=== PATIENT | female | born 1950 | race Caucasian/White ===

== ENCOUNTER 2017-03-20 09:42 | Emergency (ER) | payer MEDICARE ==
[2017-03-20 10:00] VITALS: BP 147/84
--- NOTE | 2017-03-20 10:11 | EDM.PDOC ---
ED HPI GENERAL MEDICAL PROBLEM - General Chief Complaint: Trauma Stated Complaint: [id number] FELL YESTERDAY ON [address] Time Seen by Provider: 03/20/17 09:58 Source of Information: Reports: Patient, RN, RN Notes Reviewed History Limitations: Reports: No Limitations - History of Present Illness INITIAL COMMENTS - FREE TEXT/NARRATIVE: Pt presents to the ER with c/o left shoulder pain and left hip/back pain. She states she slipped on the ice yesterday, and states the pain has not lessened at all. She states pain is a 10/10. She denies hitting her head or losing consciousness, no other complaints. 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 Left Hip Pain Score (Numeric/FACES): 10 - Related Data Allergies Allergy/AdvReac Type Severity Reaction Status Date / Time hydrochlorothiazide Allergy Difficulty Verified 02/12/15 13:33 Breathing lisinopril Allergy Cough Verified 03/20/17 10:04 Penicillins Allergy Hives Verified 02/12/15 13:33 Home Meds: Home Meds Sertraline [Zoloft] 50 mg PO DAILY 02/12/15 [History] Aspirin [Adult Low Dose Aspirin EC] 81 mg PO DAILY 03/04/15 [History] Carvedilol [Coreg] 3.125 mg PO BID 03/04/15 [History] Losartan [Cozaar] 50 mg PO DAILY 03/04/15 [History] Nitroglycerin [Nitrostat] 0.4 mg SL ASDIRECTED 03/04/15 [History] Omeprazole 20 mg PO DAILY 03/04/15 [History] atorvaSTATin [Lipitor] 40 mg PO DAILY 04/12/15 [History] Clopidogrel [Plavix] 75 mg PO DAILY 03/20/17 [History] Social & Family History - Tobacco Use Smoking Status *Q: Current Every Day Smoker Years of Tobacco use: 50 Packs/Tins Daily: 0.5 - Recreational Drug Use Recreational Drug Use: No Review of Systems - Review of Systems Review Of Systems: ROS reveals no pertinent complaints other than HPI. ED EXAM, GENERAL - Physical Exam Exam: See Below Exam Limited By: No Limitations General Appearance: Alert, WD/WN, Mild Distress Eye Exam: Bilateral Eye: EOMI, Normal Inspection Ears: Normal External Exam, Hearing Grossly Normal Nose: Normal Inspection Throat/Mouth: Normal Inspection, Normal Voice, No Airway Compromise Head: Atraumatic, Normocephalic Neck: Normal Inspection, Supple, Non-Tender, Full Range of Motion Respiratory/Chest: No Respiratory Distress, Lungs Clear, Normal Breath Sounds, No Accessory Muscle Use, Chest Non-Tender Cardiovascular: Normal Peripheral Pulses, Regular Rate, Rhythm, No Edema, No Gallop, No JVD, No Murmur, No Rub, Bradycardia Peripheral Pulses: 2+: Radial (L), Radial (R), Dorsalis Pedis (L), Dorsalis Pedis (R) GI/Abdominal: Normal Bowel Sounds, Soft, No Organomegaly, No Distention, No Abnormal Bruit, No Mass, Pelvis Stable, Tender (LLQ) (Female) Exam: Deferred Rectal (Female) Exam: Deferred Back Exam: Normal Inspection, Decreased Range of Motion Extremities: Normal Inspection, Other (Ecchymosis to the left lateral hip/thigh area). No: Normal Range of Motion (Decreased ROM left arm/shoulder, left hip/ leg) Neurological: Alert, Oriented, Normal Cognition, Normal Gait, Normal Reflexes, No Motor/Sensory Deficits Psychiatric: Normal Affect, Normal Mood Skin Exam: Warm, Dry, Intact, Normal Color, No Rash, Ecchymosis (Left lateral hip/thigh) Lymphatic: No Adenopathy Course - Vital Signs Last Recorded V/S: Last Vital Signs Temp 98.4 F 03/20/17 09:58 Pulse 54 L 03/20/17 09:58 Resp 16 03/20/17 09:58 BP 147/84 H 03/20/17 09:58 Pulse Ox 98 03/20/17 09:58 - Orders/Labs/Meds Orders: Active Orders 24 hr Category Date Time Status Burrell Catheter Insertion [Insert Urinary Catheter] [OM. Care 03/20/17 11:45 Ordered PC] Q24H Peripheral IV Care [RC] . DIRECTED Care 03/20/17 10:48 Active Urinary Catheter Assessment [RC] ASDIRECTED Care 03/20/17 11:37 Active INR,PT,PROTHROMBIN TIME [COAG] Stat Lab 11/21/17 10:56 Received Sodium Chloride 0.9% [Saline Flush] Med 03/20/17 10:48 Active 10 ml FLUSH ASDIRECTED PRN Peripheral IV Insertion Adult [OM.PC] Stat Oth 03/20/17 10:47 Ordered Medication Orders Sodium Chloride (Saline Flush) 10 ml FLUSH ASDIRECTED PRN PRN Reason: Keep Vein Open Last Admin: 03/20/17 11:18 Dose: 10 ml Labs: Laboratory Tests 03/20/17 03/20/17 Range/Units 10:56 10:56 WBC 9.9 (5.0-10.0) 10^3/uL RBC 3.94 L (4.2-5.4) 10^6/uL Hgb 11.9 L (12.0-16.0) g/dL Hct 34.9 L (37.0-47.0) % MCV 88.6 (80-100) fL MCH 30.2 (27.0-34.0) pg MCHC 34.1 (33.0-35.0) g/dL Plt Count 168 D (150-450) 10^3/uL Neut % (Auto) 77.4 H (42.2-75.2) % Lymph % (Auto) 13.3 L (20.5-50.1) % [place] % (Auto) 6.8 (2-8) % Eos % (Auto) 2.0 (1.0-3.0) % Baso % (Auto) 0.5 (0.0-1.0) % Sodium 131 L (135-145) mmol/L Potassium 4.3 (3.6-5.0) mmol/L Chloride 95 L (101-111) mmol/L Carbon Dioxide 25.0 (21.0-31.0) mmol/L Anion Gap 15.3 BUN 15 (7-18) mg/dL Creatinine 1.1 (0.6-1.3) mg/dL Est Cr Clr Drug Dosing 36.94 mL/min Estimated GFR (MDRD) 49 BUN/Creatinine Ratio 13.63 Glucose 111 H (74-105) mg/dL Calcium 9.2 (8.4-10.2) mg/dl Total Bilirubin 1.3 H (0.2-1.0) mg/dL AST 23 (10-42) IU/L ALT 16 (10-60) IU/L Alkaline Phosphatase 69 (42-121) IU/L Total Protein 7.2 (6.7-8.2) g/dl Albumin 3.9 (3.2-5.5) g/dl Globulin 3.3 Albumin/Globulin Ratio 1.18 Meds: Medications Generic Name Dose Route Start Last Admin Trade Name Freq PRN Reason Stop Dose Admin Sodium Chloride 10 ml 03/20/17 10:48 03/20/17 11:18 Saline Flush FLUSH 10 ml ASDIRECTED PRN Administration Keep Vein Open Discontinued Medications Generic Name Dose Route Start Last Admin Trade Name Freq PRN Reason Stop Dose Admin Hydromorphone HCl 0.5 mg 03/20/17 10:48 03/20/17 11:18 Dilaudid IVPUSH 03/20/17 10:49 0.5 mg ONETIME ONE Administration - Radiology Interpretation Free Text/Narrative:: Left shoulder: Acute nondisplaced fracture scapula that extends into the glenoid (L) Left hip/pelvis: Compacted left femoral neck fx See rad report Departure - Departure Time of Disposition: 11:55 Disposition: DC/Tfer to [facility] Condition: Fair Clinical Impression: Fracture of neck of femur, hip Fracture, scapula closed Qualifiers: Encounter type: initial encounter Scapula location: unspecified part of scapula Laterality: left Qualified Code(s): S42.102A - Fracture of unspecified part of scapula, left shoulder, initial encounter for closed fracture - Discharge Information Forms: ED Department Discharge, Interfacility Transfer EMTALA - My Orders Last 24 Hours: My Active Orders 03/20/17 10:47 Peripheral IV Insertion Adult [OM.PC] Stat 03/20/17 10:48 Peripheral IV Care [RC] . DIRECTED Sodium Chloride 0.9% [Saline Flush] 10 ml FLUSH ASDIRECTED PRN 03/20/17 10:56 INR,PT,PROTHROMBIN TIME [COAG] Stat - Assessment/Plan Last 24 Hours: My Active Orders 03/20/17 10:47 Peripheral IV Insertion Adult [OM.PC] Stat 03/20/17 10:48 Peripheral IV Care [RC] . DIRECTED Sodium Chloride 0.9% [Saline Flush] 10 ml FLUSH ASDIRECTED PRN 03/20/17 10:56 INR,PT,PROTHROMBIN TIME [COAG] Stat
--- NOTE | 2017-03-20 10:38 | CR ---
Clinical history: 66-year-old female pain left shoulder (fall). Interpretation: Abnormal. Acute nondisplaced fracture scapula that extends into the glenoid. No sign of other left shoulder fracture, acromioclavicular separation or acute glenohumeral dislocati on. Left lung apex is clear.
[2017-03-20] MEDS ORDERED: HYDROmorphone 1 MG/ML Syringe IVPUSH ONE ×2 (10:48→12:08)
[2017-03-20] MEDS ORDERED: Sodium Chloride 0.9% 10 ML Syringe FLUSH PRN (10:48)
--- NOTE | 2017-03-20 11:26 | CR ---
Clinical history: 3 views 66-year-old female injured in fall ("fractured scapula" and left hip pain). Interpretation: AP pelvis/hips and crosstable lateral views of the left hip abnormal. Acute, anatomically aligned but impacted subcapital fracture of the left femoral neck. Arthritic changes lower lumbar spine. Symmetric spacing normal-appearing SI and hip joints. No sign of pathologic skeletal lesion, pelvic or contralateral right hip fracture/dislocation.
== END 2017-03-20 12:25 ==
LOC: DL.ED 09:42
DX: S72.012A Unspecified intracapsular fracture of left femur, initial encounter for closed fracture (principal); S42.145A Nondisplaced fracture of glenoid cavity of scapula, left shoulder, initial encounter for closed fracture; F17.210 Nicotine dependence, cigarettes, uncomplicated; Z79.82 Long term (current) use of aspirin; Z79.02 Long term (current) use of antithrombotics/antiplatelets; Z79.899 Other long term (current) drug therapy; Z88.0 Allergy status to penicillin; Z88.8 Allergy status to other drugs, medicaments and biological substances; W18.49XA Other slipping, tripping and stumbling without falling, initial encounter
CPT/HCPCS: 36415; 51702; 73030; 73502; 80053; 85025; 85610; 96374; 96376; 99285; J1170; J7050; 99284

== ENCOUNTER 2019-11-14 08:00 | Day surgery (SDC) | payer MEDICARE, OTHER ==
[~2019-11-14 08:00] MED LIST: Dextrose 5%-0.45% NaCl 1,000 ML IV SCH
[2019-11-14] MEDS ORDERED: Midazolam 1 MG/ML 2 ML SDV IV ONE ×6 (08:01→09:03)
[2019-11-14] MEDS ORDERED: fentaNYL 100 MCG/2 ML SDV IV ONE ×3 (08:01→08:57)
[2019-11-14] MEDS ORDERED: fentaNYL 100 MCG/2 ML SDV ONE (08:13)
[2019-11-14] MEDS ORDERED: Midazolam 1 MG/ML 2 ML SDV ONE (08:13)
--- NOTE | 2019-11-14 10:31 | OR ---
DATE: 11/14/2019 PREOPERATIVE DIAGNOSIS: Prior colon polyps. POSTOPERATIVE DIAGNOSIS: Prior colon polyps. PROCEDURE: Total colonoscopy with excision of polyp at 20 cm. ANESTHESIA: Conscious sedation. SPECIMEN: Polyp. OPERATIVE FINDINGS: A small sessile polyp at 20 cm and sigmoid diverticulosis. INDICATION FOR PROCEDURE: This 68-year-old female has a history of prior polyp removal on prior colonoscopy. RECOMMENDATION: Followup colonoscopy in 5 years for polyp surveillance. DESCRIPTION OF PROCEDURE: After adequate preparation, a colonoscope was inserted into the rectum. This was easily passed all the way to the cecum. Confirmation of the cecum was made by visualization of the ileocecal valve and palpation in the right lower quadrant. The bowel prep was excellent. On withdrawal of the scope, the only abnormality noted was sigmoid diverticulosis and a small polyp at about 20 cm from the anal verge. A large biopsy forceps was used to completely extract the polyp. No other abnormalities were noted except for external hemorrhoids. She does not have any significant internal hemorrhoids. Air was suctioned from the colon, and the scope removed. [facility] /[id number]
[2019-11-14 12:28] VITALS: BP 149/72; PULSE 56
== END 2019-11-14 11:28 | disposition home or self-care (01) ==
LOC: DL.ENDO 08:00
PROVIDERS: ATTEND Surgery
DX: Z12.11 Encounter for screening for malignant neoplasm of colon (principal); D12.5 Benign neoplasm of sigmoid colon; K21.9 Gastro-esophageal reflux disease without esophagitis; K57.30 Diverticulosis of large intestine without perforation or abscess without bleeding; Z86.010 Personal history of colon polyps; Z11.59 Encounter for screening for other viral diseases; Z88.0 Allergy status to penicillin; Z88.8 Allergy status to other drugs, medicaments and biological substances
CPT/HCPCS: 45380; 88305; J2250; J3010; J7042; U0002

== ENCOUNTER 2020-07-14 07:51 | Day surgery (SDC) | payer MEDICARE ==
[2020-07-14] MEDS ORDERED: Dexamethasone 4 MG/ML SDV IV ONE (07:52)
[2020-07-14] MEDS ORDERED: Midazolam 1 MG/ML 2 ML SDV IV ONE (07:52)
[2020-07-14] MEDS ORDERED: Sodium Chloride 0.9% 10 ML Syringe IV ONE (07:52)
[2020-07-14] MEDS ORDERED: Acetaminophen 325 MG Tab PO PRN (08:00)
[2020-07-14] MEDS ORDERED: Cataract Ophth Solution EYELF ONE (08:00)
[2020-07-14] MEDS ORDERED: Tropicamide 1% Ophth Soln 15 ML Bottle EYELF ONE (08:00)
[2020-07-14] MEDS ORDERED: Moxifloxacin 0.5% Ophth Soln 3 ML Bottle EYELF ONE (08:00)
[2020-07-14] MEDS ORDERED: Ondansetron 4 MG/2 ML SDV IVPUSH PRN (08:00)
[2020-07-14] MEDS ORDERED: Sodium Chloride 0.9% 10 ML Syringe FLUSH PRN (08:00)
[2020-07-14] MEDS ORDERED: Timolol Maleate 0.5% Ophth Soln 5 ML Bottle EYELF ONE (08:00)
[2020-07-14] MEDS ORDERED: Phenylephrine 10% Ophth Soln 5 ML Bot EYELF ONE ×2 (08:00→10:25)
[2020-07-14] MEDS ORDERED: Povidone-Iodine 5% Sterile Ophth Soln 30 ML Bottle EYELF ONE ×2 (08:00→10:25)
[2020-07-14] MEDS ORDERED: Proparacaine 0.5% Ophth Soln 15 ML Bottle EYELF ONE (08:00)
[2020-07-14] MEDS ORDERED: Phenylephrine 10% Ophth Soln 5 ML Bot EYELF PRN (08:00)
[2020-07-14 08:15] VITALS: BP 149/68; PULSE 47
[2020-07-14] MEDS ORDERED: Tetracaine HCl/PF 0.5% 4 ML Bottle EYELF ONE (10:25)
[2020-07-14] MEDS ORDERED: Diclofenac Sodium 0.1% Ophth Soln 5 ML Bottle EYELF ONE (10:25)
[2020-07-14] MEDS ORDERED: Lidocaine 1% 30 ML SDV ONE (10:25)
[2020-07-14] MEDS ORDERED: Apraclonidine 0.5% Ophth Soln 5 ML Bot EYELF ONE (10:25)
[2020-07-14] MEDS ORDERED: Chondroitin Sulfate/Hyaluronate Sodium Ophth Inj 0.75 ML Syringe EYELF ONE (10:26)
[2020-07-14] MEDS ORDERED: Balanced Salt Solution Ophth Irrig 500 ML Bottle IOCULAR ONE (10:26)
[2020-07-14] MEDS ORDERED: Vancomycin 500 MG SDV EYELF ONE (10:26)
--- NOTE | 2020-07-14 14:36 | OR ---
DATE: 07/14/2020 PREOPERATIVE DIAGNOSIS: Visually significant mixed cataract, left eye. POSTOPERATIVE DIAGNOSIS: Visually significant mixed cataract, left eye. PROCEDURE: Extracapsular cataract extraction with intraocular lens implant, left eye. ANESTHESIA: Topical/local MAC. COMPLICATIONS: None. INDICATION: Ms. Sanon was seen in the clinic. She has noticed a progressive change in vision, difficulty seeing television, difficulty seeing the menus, difficulty seeing and filling out forms. Her examination reveals visually significant mixed cataract. I explained options, offered cataract surgery, and I explained risks including, but not limited to infection, retinal detachment, loss of vision, need for additional surgery, and risks associated with anesthesia. We discussed implant options. She has requested a monofocal implant. She is comfortable wearing glasses following surgery if necessary. She voiced an understanding with respect to risks and alternatives and wished to proceed. OPERATIVE DESCRIPTION: After informed consent was obtained and the risks, benefits, and alternatives were explained, the patient was brought to the operative suite and topical anesthesia was administered. The patient was then prepped and draped in the sterile fashion and attention was placed on the left eye. A sterile lid speculum was placed into the left eye to allow operative exposure. A full-thickness paracentesis was made in the temporal portion of the operative eye. Preservative-free lidocaine 0.1 mL was injected into the anterior chamber followed by viscoelastic. A full-thickness corneal incision was then made into the anterior chamber. A bent needle cystotome was used to create a small wilian in the anterior capsule. The capsulorrhexis forceps was then used to create a 360-degree curvilinear capsulorrhexis. The nucleus was then removed using a phacoemulsification handpiece and the remaining cortical material was then removed with irrigation and aspiration handpiece. Following removal of the cortical material, the capsular bag was then inspected and noted to be free of any holes or tears. Viscoelastic was then injected into the capsular bag and the intraocular lens was inserted into the capsular bag. The viscoelastic material was then removed from both the anterior and posterior chambers and from behind the IOL. The lens and capsular bag were then reinspected. The IOL was well centered and the capsular bag intact. The wound and paracentesis sites were inspected and hydrated with balanced saline solution. Both were found to be self- sealing. The intraocular pressure was assessed digitally and found to be within normal range. A good red reflex was noted at the completion of the procedure. No complications occurred during the operation. At the completion of the procedure, Maxitrol, Voltaren, and Iopidine drops were placed into the operative eye. A sterile eye shield was placed over the operative eye and the patient was transported to the postoperative recovery area having tolerated the procedure well. Postoperative instructions were given along with a postoperative appointment. The patient was advised to call with any questions or concerns. [facility] /[id number]
== END 2020-07-14 10:57 | disposition home or self-care (01) ==
LOC: DL.SDS 07:51
PROVIDERS: ATTEND Ophthalmology
DX: H26.8 Other specified cataract (principal); E78.5 Hyperlipidemia, unspecified; I10 Essential (primary) hypertension; I25.10 Atherosclerotic heart disease of native coronary artery without angina pectoris; I25.2 Old myocardial infarction; E55.9 Vitamin D deficiency, unspecified; K21.9 Gastro-esophageal reflux disease without esophagitis; Z88.0 Allergy status to penicillin; Z88.8 Allergy status to other drugs, medicaments and biological substances; Z79.82 Long term (current) use of aspirin; Z79.899 Other long term (current) drug therapy; Z98.890 Other specified postprocedural states; Z87.891 Personal history of nicotine dependence
CPT/HCPCS: 66984; J1100; J2250; J3370; V2632; 00142

== ENCOUNTER 2020-07-21 07:57 | Day surgery (SDC) | payer MEDICARE ==
[2020-07-21] MEDS ORDERED: Midazolam 1 MG/ML 2 ML SDV IV ONE (07:58)
[2020-07-21] MEDS ORDERED: Dexamethasone 4 MG/ML SDV IV ONE (07:58)
[2020-07-21] MEDS ORDERED: Sodium Chloride 0.9% 10 ML Syringe IV ONE (07:58)
[2020-07-21] MEDS ORDERED: Proparacaine 0.5% Ophth Soln 15 ML Bottle EYERT ONE (08:00)
[2020-07-21] MEDS ORDERED: Phenylephrine 10% Ophth Soln 5 ML Bot EYERT ONE ×2 (08:00→09:12)
[2020-07-21] MEDS ORDERED: Moxifloxacin 0.5% Ophth Soln 3 ML Bottle EYERT ONE (08:00)
[2020-07-21] MEDS ORDERED: Phenylephrine 10% Ophth Soln 5 ML Bot EYERT PRN (08:00)
[2020-07-21] MEDS ORDERED: Timolol Maleate 0.5% Ophth Soln 5 ML Bottle EYERT ONE (08:00)
[2020-07-21] MEDS ORDERED: Ondansetron 4 MG/2 ML SDV IVPUSH PRN (08:00)
[2020-07-21] MEDS ORDERED: Sodium Chloride 0.9% 10 ML Syringe FLUSH PRN (08:00)
[2020-07-21] MEDS ORDERED: Tropicamide 1% Ophth Soln 15 ML Bottle EYERT ONE (08:00)
[2020-07-21] MEDS ORDERED: Acetaminophen 325 MG Tab PO PRN (08:00)
[2020-07-21] MEDS ORDERED: Povidone-Iodine 5% Sterile Ophth Soln 30 ML Bottle EYERT ONE ×2 (08:00→09:12)
[2020-07-21] MEDS ORDERED: Cataract Ophth Solution EYERT ONE (08:00)
[2020-07-21 09:03] VITALS: BP 114/48; PULSE 47
[2020-07-21] MEDS ORDERED: Lidocaine 1% 30 ML SDV ONE (09:09)
[2020-07-21] MEDS ORDERED: Tetracaine HCl/PF 0.5% 4 ML Bottle EYERT ONE (09:11)
[2020-07-21] MEDS ORDERED: Apraclonidine 0.5% Ophth Soln 5 ML Bot EYERT ONE (09:12)
[2020-07-21] MEDS ORDERED: Diclofenac Sodium 0.1% Ophth Soln 5 ML Bottle EYERT ONE (09:12)
[2020-07-21] MEDS ORDERED: Chondroitin Sulfate/Hyaluronate Sodium Ophth Inj 0.75 ML Syringe EYERT ONE (09:13)
[2020-07-21] MEDS ORDERED: Balanced Salt Solution Ophth Irrig 500 ML Bottle IOCULAR ONE (09:13)
[2020-07-21] MEDS ORDERED: Vancomycin 500 MG SDV EYERT ONE (09:13)
--- NOTE | 2020-07-21 17:36 | OR ---
DATE: 07/21/2020 PREOPERATIVE DIAGNOSIS: Visually significant mixed cataract, right eye. POSTOPERATIVE DIAGNOSIS: Visually significant mixed cataract, right eye. PROCEDURE: Extracapsular cataract extraction with intraocular lens implant, right eye. ANESTHESIA: Topical/local MAC. COMPLICATIONS: None. INDICATION: Ms. Sanon was seen in the clinic. She is unhappy with her vision, difficulty seeing labels, difficulty seeing medicine bottles, difficulty seeing telephone books, difficulty writing checks, difficulty watching television. Her examination revealed visually significant mixed cataract. I explained options, offered cataract surgery, and I explained risks including, but not limited to infection, retinal detachment, loss of vision, need for additional surgery, and risks associated with anesthesia. We discussed implant options. She has requested a monofocal implant. She voiced understanding with respect to risks including the potential for vision loss and wished to proceed. OPERATIVE DESCRIPTION: After informed consent was obtained and the risks, benefits, and alternatives were explained, the patient was brought to the operative suite and topical anesthesia was administered. The patient was then prepped and draped in the sterile fashion and attention was placed on the right eye. A sterile lid speculum was placed into the right eye to allow operative exposure. A full-thickness paracentesis was made in the temporal portion of the operative eye. Preservative-free lidocaine 0.1 mL was injected into the anterior chamber followed by viscoelastic. A full-thickness corneal incision was then made into the anterior chamber. A bent needle cystotome was used to create a small wilian in the anterior capsule. The capsulorrhexis forceps was then used to create a 360-degree curvilinear capsulorrhexis. The nucleus was then removed using a phacoemulsification handpiece and the remaining cortical material was then removed with irrigation and aspiration handpiece. Following removal of the cortical material, the capsular bag was then inspected and noted to be free of any holes or tears. Viscoelastic was then injected into the capsular bag and the intraocular lens was inserted into the capsular bag. The viscoelastic material was then removed from both the anterior and posterior chambers and from behind the IOL. The lens and capsular bag were then reinspected. The IOL was well centered and the capsular bag intact. The wound and paracentesis sites were inspected and hydrated with balanced saline solution. Both were found to be self- sealing. The intraocular pressure was assessed digitally and found to be within normal range. A good red reflex was noted at the completion of the procedure. No complications occurred during the operation. At the completion of the procedure, Maxitrol, Voltaren, and Iopidine drops were placed into the operative eye. A sterile eye shield was placed over the operative eye and the patient was transported to the postoperative recovery area having tolerated the procedure well. Postoperative instructions were given along with a postoperative appointment. The patient was advised to call with any questions or concerns. [facility] /[id number]
== END 2020-07-21 10:22 | disposition home or self-care (01) ==
LOC: DL.SDS 07:57
PROVIDERS: ATTEND Ophthalmology
DX: H26.8 Other specified cataract (principal); I10 Essential (primary) hypertension; I25.10 Atherosclerotic heart disease of native coronary artery without angina pectoris; K21.9 Gastro-esophageal reflux disease without esophagitis; E78.5 Hyperlipidemia, unspecified; Z88.0 Allergy status to penicillin; Z88.8 Allergy status to other drugs, medicaments and biological substances; Z79.899 Other long term (current) drug therapy; Z79.82 Long term (current) use of aspirin; Z98.890 Other specified postprocedural states; Z87.891 Personal history of nicotine dependence
CPT/HCPCS: 66984; J1100; J2250; J3370; V2632; 00142

== ENCOUNTER 2024-08-28 14:25 | Emergency (ER) | payer MEDICARE, OTHER ==
[2024-08-28] MEDS ORDERED: Sodium Chloride 0.9% 10 ML Syringe FLUSH PRN (14:42)
[2024-08-28 15:21] LABS: HEMATOCRIT 27.8 % (37.0-47.0); HEMOGLOBIN 9.9 g/dL (12.0-16.0); MEAN CORPUSCULAR HEMOGLOBIN 30.9 pg (27.0-34.0); MEAN CORPUSCULAR HGB CONC 35.6 g/dL (33.0-35.0); MEAN CORPUSCULAR VOLUME 86.9 fL (80-100); PLATELET COUNT,PLT 241 10^3/uL (150-450); WHITE BLOOD CELL COUNT,WBC 15.3 10^3/uL (5.0-10.0)
[2024-08-28 15:23] LABS: EOSINOPHILS PERCENT AUTO 0.1 % (1.0-3.0); LYMPHOCYTES PERCENT AUTO 1.8 % (20.5-50.1); MONOCYTES PERCENT AUTO 6.3 % (2-8); NEUTROPHILS PERCENT AUTO 91.8 % (42.2-75.2)
[2024-08-28 15:34] LABS: ALANINE AMINOTRANSFERASE,ALT 24 U/L (14-59); ALBUMIN 2.9 g/dL (3.4-5.0); ALKALINE PHOSPHATASE 85 U/L (46-116); ANION GAP 16.3 mEq/L (7-13); ASPARTATE AMNIOTRANSFERASE,AST 53 U/L (15-37); B-TYPE NATRIURETIC PEPTIDE,BNP 57 pg/ml (0-100); BILIRUBIN TOTAL 1.1 mg/dL (0.2-1.0); BLOOD UREA NITROGEN,BUN 25 mg/dL (7-18); BUN/CREATININE RATIO 22.3 (No establ ref range); CALCIUM 8.6 mg/dL (8.5-10.1); CARBON DIOXIDE,CO2 21 mmol/L (21-32); CHLORIDE,CL 87 mmol/L (98-107); CREATININE 1.12 mg/dL (0.55-1.02); EST CRCL DRUG DOSING (CG) 31.17 mL/min; GLUCOSE RANDOM 94 mg/dL (70-99); MAGNESIUM 1.7 mg/dL (1.8-2.4); POTASSIUM,K 3.3 mmol/L (3.5-5.1); PROTEIN TOTAL,TP 7.1 g/dL (6.4-8.2); SODIUM,NA 121 mmol/L (136-145)
[2024-08-28 15:37] LABS: LACTIC ACID 1.3 mmol/L (0.4-2.0)
[2024-08-28 15:38] LABS: A/G RATIO 0.69; ESTIMATED GFR 51 mL/min (>=60); ETHANOL BLOOD MEDICAL < 3 mg/dL (0)
[2024-08-28 15:39] LABS: C-REACTIVE PROTEIN > 25.00 ng/dL (<=0.50)
[2024-08-28 15:46] VITALS: BP 124/54; PULSE 101
[2024-08-28 15:48] LABS: APPEARANCE,URINE SLIGHTLY CLOUDY (CLEAR); BILIRUBIN,URINE NEGATIVE (NEGATIVE); COLOR,URINE YELLOW (YELLOW); GLUCOSE,URINE NEGATIVE (NEGATIVE); KETONES,URINE 15 (NEGATIVE); LEUKOCYTE ESTERASE,URINE SMALL (NEGATIVE); NITRITE,URINE POSITIVE (NEGATIVE); OCCULT BLOOD,URINE LARGE (NEGATIVE); PROTEIN,URINE 100 (NEGATIVE); UROBILINOGEN,URINE 0.2 mg/dL (0.2-1.0)
[2024-08-28] MEDS ORDERED: Doxycycline 100 MG in Sodium Chloride 0.9% 100 ML IV ONE (15:50)
[2024-08-28 15:52] LABS: AMPHETAMINES,URINE NEGATIVE (NEGATIVE); BARBITURATES,URINE NEGATIVE (NEGATIVE); BENZODIAZEPINE,URINE NEGATIVE (NEGATIVE); MDMA (ECSTASY), URINE NEGATIVE (NEGATIVE); METHADONE,URINE NEGATIVE (NEGATIVE); METHAMPHETAMINES,URINE NEGATIVE (NEGATIVE); OPIATES,URINE NEGATIVE (NEGATIVE); OXYCODONE,URINE NEGATIVE (NEGATIVE); PHENCYCLIDINE,URINE NEGATIVE (NEGATIVE); TCA,URINE NEGATIVE (NEGATIVE)
[2024-08-28] MEDS: Sodium Chloride 0.9% 1,000 ML IV ONE (15:57)
[2024-08-28] MEDS: Potassium Chloride 10 MEQ Tab.ER PO ONE (15:58)
[2024-08-28 16:02] LABS: BAND PERCENT MAN 5 %; LYMPHOCYTES PERCENT MAN 3 % (20-50); MONOCYTES PERCENT MAN 3 % (2-8); SEG NEUTROPHILS PERCENT MAN 89 % (42-75)
[2024-08-28] MEDS: Doxycycline 100 MG in Sodium Chloride 0.9% 100 ML IV ONE (16:05)
[2024-08-28 16:10] LABS: BACTERIA,URINE MANY /HPF (0-FEW/HPF); EPITHELIAL CELLS,URINE MODERATE /HPF (NOT SEEN); RBC,URINE 0-5 /HPF (0-5); WBC,URINE 30-40 /HPF (0-5/HPF)
[2024-08-28] MEDS: cefTRIAXone 2 GM Vial IVPUSH ONE (16:37)
== END 2024-08-28 16:57 ==
LOC: DL.ED 14:25
DX: J18.9 Pneumonia, unspecified organism (principal); N30.01 Acute cystitis with hematuria; I25.2 Old myocardial infarction; I25.10 Atherosclerotic heart disease of native coronary artery without angina pectoris; I10 Essential (primary) hypertension; Z88.0 Allergy status to penicillin; Z88.8 Allergy status to other drugs, medicaments and biological substances; Z79.82 Long term (current) use of aspirin; Z79.899 Other long term (current) drug therapy
CPT/HCPCS: 36415; 71046; 80053; 80305; 80307; 81001; 83605; 83735; 83880; 85025; 86140; 87040; 87086; 87088; 87186; 96365; 96375; 99284; 99285; A9270; J0696; J3490; J7030